=== PATIENT | female | born 1980 | race Caucasian/White ===

== ENCOUNTER 2023-09-21 20:28 | Emergency (ER) | payer BC ==
[~2023-09-21] VITALS: Ht 152.4 cm; Wt 58.5 kg
[2023-09-21 21:06] VITALS: BP 113/58; PULSE 66; RESP 20; TEMP 97.4; O2SAT 100
[2023-09-21] MEDS: KETOROLAC 30 MG/ML VIAL IM ONE (23:53)
[2023-09-21] MEDS: PROCHLORPERAZINE 10 MG/2 ML VIAL IM ONE (23:56)
[2023-09-22] MEDS ORDERED: IBUP-2213 PO (00:46)
[2023-09-22 01:00] VITALS: BP 93/65; PULSE 68; RESP 16; O2SAT 96
== END 2023-09-22 01:00 | disposition home or self-care (01) ==
LOC: MED 20:28
DX: R51.9 Headache, unspecified (principal); Z79.899 Other long term (current) drug therapy
CPT/HCPCS: 70450; 81025; 96372; 99285; J0780; J1885; Q0163